=== PATIENT | female | born 1970 | race Caucasian/White ===

== ENCOUNTER 2021-09-05 09:24 | Outpatient (CLI) | payer OTHER, SELFPAY ==
[2021-09-05 09:51] LABS: Hematocrit 35.9 % (33.0-51.0); Hemoglobin* 11.7 gm/dL (12.0-16.0); Mean Corpuscular HGB Conc 33 gm/dL (32-36); Mean Corpuscular Hemoglobin 29 pg (26-34); Mean Corpuscular Volume 89 fL (80-100); Platelet Count* 324 K/uL (140-440); Red Blood Count 4.05 m/uL (4.00-5.20); White Blood Count* 6.15 K/uL (4.50-11.00)
[2021-09-05 09:53] LABS: Slide Review Reflex No
[2021-09-05 13:53] LABS: Albumin* 3.9 g/dL (3.3-5.0)
[2021-09-05 13:54] LABS: Chloride* 106 mmol/L (96-114); Potassium* 4.8 mmol/L (3.6-5.1); Sodium* 139 mmol/L (135-149)
[2021-09-05 13:56] LABS: Aspartate Amino Transferase* 19 U/L (12-35); Bilirubin Total* 0.1 mg/dL (0.1-1.5); Blood Urea Nitrogen* 14 mg/dL (7-30); Carbon Dioxide* 26 mmol/L (20-32); Cholesterol* 170 mg/dL (90-199); Creatinine* 0.8 mg/dL (0.5-1.5); Estimated Glomerular Filt Rate 88 ml/min; Total Protein* 6.8 g/dL (6.0-8.3)
[2021-09-05 13:57] LABS: Alkaline Phosphatase* 81 U/L (40-150); Calcium* 8.8 mg/dL (8.4-10.6); Glucose* 105 mg/dL (60-115); HDL Cholesterol* 47 mg/dL (>=50); LDL Cholesterol Calculated 102 mg/dL (<100); Triglycerides* 104 mg/dL (40-149)
[2021-09-05 14:08] LABS: Alanine Aminotransferase* 16 U/L (4-35)
== END 2021-09-05 09:25 | disposition home or self-care (01) ==
PROVIDERS: PCP Physician Assistant Medical; Visit Provider Physician Assistant Medical
DX: Z00.00 Encounter for general adult medical examination without abnormal findings (principal); N92.0 Excessive and frequent menstruation with regular cycle; Z13.6 Encounter for screening for cardiovascular disorders
CPT/HCPCS: 80053; 80061; 84443; 85027

== ENCOUNTER 2021-09-18 13:46 | Outpatient (CLI) | payer OTHER, SELFPAY ==
--- NOTE | 2021-09-18 14:00 | CRLHL7_ITS ---
For Patients: As a result of the Century Cures Act, medical imaging exams and procedure reports are released immediately into your electronic medical record. You may view this report before your referring provider. If you have questions, please contact your health care provider. INDICATION: EXCESSIVE AND FREQUENT MENSTRUATION WITH REGULAR CYCLE COMPARISON: none TECHNIQUE: 2D sevilla scale and color Doppler images were acquired of the pelvis using a transabdominal and transvaginal approach. FINDINGS: Sonographic images demonstrate a normal size and smooth outer contour of the uterus. Uterus measures 9.1 cm in length by 4.4 cm in AP diameter by 5.4 cm in transverse dimension. The myometrium has a normal uniform echotexture. The endometrial lining appears heterogeneous measures 15 mm in composite thickness. Cervical nabothian cysts are present. The right ovary is not visualized and the left ovary measures 3.4 x 2.3 x 3.0 cm. The left ovary demonstrates normal arterial and venous blood flow on color Doppler analysis. There are no suspicious fluid collections within the cul-de-sac. IMPRESSION: Heterogeneously thickened endometrium measuring up to 1.5 cm. Dictated by Morales Parks MD @ 09/18/2021 3:49:25 PM (Electronically Signed)
== END 2021-09-18 13:47 | disposition home or self-care (01) ==
PROVIDERS: PCP Physician Assistant Medical; Visit Provider Physician Assistant Medical
DX: N92.0 Excessive and frequent menstruation with regular cycle (principal); R93.89 Abnormal findings on diagnostic imaging of other specified body structures
CPT/HCPCS: 76830; 76856

== ENCOUNTER 2022-10-21 08:03 | Outpatient (CLI) | payer OTHER, SELFPAY | END 2022-10-21 08:04 | disposition home or self-care (01) | PROVIDERS: PCP Physician Assistant Medical; Visit Provider Physician Assistant Medical | DX: Z00.00 Encounter for general adult medical examination without abnormal findings (principal); E66.01 Morbid (severe) obesity due to excess calories; N92.0 Excessive and frequent menstruation with regular cycle; Z13.6 Encounter for screening for cardiovascular disorders; Z13.29 Encounter for screening for other suspected endocrine disorder | CPT/HCPCS: 80053; 80061; 84439; 84443 ==

== ENCOUNTER 2023-04-21 13:28 | Outpatient (CLI) | payer OTHER, SELFPAY | END 2023-04-21 13:29 | disposition home or self-care (01) | LOC: NFLDREF 05-05 12:49 | PROVIDERS: PCP Physician Assistant Medical; Referring Provider Physician Assistant Medical; Visit Provider Physician Assistant Medical | DX: E03.8 Other specified hypothyroidism (principal) | CPT/HCPCS: 84439; 84443 ==

== ENCOUNTER 2023-07-20 08:56 | Outpatient (CLI) | payer OTHER, SELFPAY | END 2023-07-20 08:57 | disposition home or self-care (01) | LOC: NFLDREF 08-06 12:27 | PROVIDERS: PCP Physician Assistant Medical; Referring Provider Physician Assistant Medical; Visit Provider Physician Assistant Medical | DX: E03.9 Hypothyroidism, unspecified (principal) | CPT/HCPCS: 84439; 84443 ==

== ENCOUNTER 2023-10-20 09:01 | Outpatient (CLI) | payer OTHER, SELFPAY | END 2023-10-20 09:02 | disposition home or self-care (01) | LOC: NFLDREF 10-23 11:16 | PROVIDERS: PCP Physician Assistant Medical; Referring Provider Physician Assistant Medical; Visit Provider Physician Assistant Medical | DX: E03.9 Hypothyroidism, unspecified (principal) | CPT/HCPCS: 84443 ==

== ENCOUNTER 2023-11-19 07:46 | Outpatient (CLI) | payer OTHER, SELFPAY ==
[2023-11-22 01:34] LABS: HPV Source Cervical/Vag; HPV, High Risk by TMA Not Detected
== END 2023-11-19 07:47 | disposition home or self-care (01) ==
PROVIDERS: PCP Physician Assistant Medical; Visit Provider Physician Assistant Medical
DX: Z00.00 Encounter for general adult medical examination without abnormal findings (principal); E03.9 Hypothyroidism, unspecified; N92.0 Excessive and frequent menstruation with regular cycle; E66.01 Morbid (severe) obesity due to excess calories; Z13.6 Encounter for screening for cardiovascular disorders
CPT/HCPCS: 80053; 80061; 87624; 87625; 88141; 88142

== ENCOUNTER 2024-01-20 08:52 | Outpatient (CLI) | payer OTHER, SELFPAY | END 2024-01-20 08:53 | disposition home or self-care (01) | LOC: NFLDREF 01-25 18:47 | PROVIDERS: PCP Physician Assistant Medical; Referring Provider Physician Assistant Medical; Visit Provider Physician Assistant Medical | DX: E03.8 Other specified hypothyroidism (principal) | CPT/HCPCS: 84439; 84443 ==

== ENCOUNTER 2024-04-25 09:00 | Outpatient (CLI) | payer OTHER, SELFPAY | END 2024-04-25 09:01 | disposition home or self-care (01) | LOC: NFLDREF 04-26 15:10 | PROVIDERS: PCP Physician Assistant Medical; Referring Provider Physician Assistant Medical; Visit Provider Physician Assistant Medical | DX: E03.9 Hypothyroidism, unspecified (principal) | CPT/HCPCS: 84443 ==

== ENCOUNTER 2024-10-19 08:52 | Outpatient (CLI) | payer OTHER, SELFPAY | END 2024-10-19 08:53 | disposition home or self-care (01) | LOC: NFLDREF 10-20 10:50 | PROVIDERS: PCP Physician Assistant Medical; Referring Provider Physician Assistant Medical; Visit Provider Physician Assistant Medical | DX: E03.9 Hypothyroidism, unspecified (principal) | CPT/HCPCS: 84443 ==

== ENCOUNTER 2024-12-19 09:27 | Outpatient (CLI) | payer OTHER, SELFPAY | END 2024-12-19 09:28 | disposition home or self-care (01) | LOC: NFLDREF 12-22 11:44 | PROVIDERS: PCP Physician Assistant Medical; Referring Provider Physician Assistant Medical; Visit Provider Physician Assistant Medical | DX: R73.03 Prediabetes (principal); E03.9 Hypothyroidism, unspecified; Z00.00 Encounter for general adult medical examination without abnormal findings | CPT/HCPCS: 80053; 80061; 84443 ==